=== PATIENT | male | born 1990 | race American Indian/Alaskan Native ===

== ENCOUNTER 2016-09-27 14:29 | Inpatient (IN) | payer OTHER ==
[2016-09-27] MEDS ORDERED: NARCAN 2 MG/2 ML ONE (14:37)
[2016-09-27] MEDS ORDERED: NARCAN 2 MG/2 ML IV ONE (14:37)
[2016-09-27] MEDS ORDERED: NACL 0.9% 1000 ML 1,000 ML IV ONE (15:15)
--- NOTE | 2016-09-27 15:18 | Cat Scan Report ---
FINAL REPORT EXAM: CT HEAD/BRAIN WO CON HISTORY: altered mental status TECHNIQUE: CT imaging acquired through the head without intravenous contrast. Transaxial reformations are provided. PRIORS: None. FINDINGS: The ventricles, cisterns and sulci are normal. No intraparenchymal or extra-axial mass, hemorrhage, or mass effect. [place] and white-matter differentiation is normal. Normal spherical shape of the globes. No significant abnormality within the paranasal sinuses or mastoid air cells. No skull or facial fracture visualized. IMPRESSION: No acute intracranial abnormality. Consider MRI follow-up as warranted.
--- NOTE | 2016-09-27 15:19 | Emergency Department Report ---
- General Chief complaint: Altered Mental Status Stated complaint: POSS DM Time Seen by Provider: 09/27/16 15:11 Source: EMS Mode of arrival: Stretcher Limitations: Altered Mental Status - History of Present Illness MD Complaint: generalized weakness, focal weakness, lack of energy -: Gradual Location: generalized Severity scale (0 -10): 2 Quality: tingling, numbness Consistency: constant Improves with: none Associated Symptoms: denies: chest pain, confusion, dark stools, diaphoresis, dysuria, easy bruising, fever/chills, headaches, loss of appetite, nausea/ vomiting, myalgias, rash, shortness of breath, syncope - Related Data Allergies Allergy/AdvReac Type Severity Reaction Status Date / Time No Known Allergies Allergy Unverified 05/21/14 22:55 ED Review of Systems ROS: Stated complaint: POSS DM Other details as noted in HPI Comment: Unobtainable due to pts medical conditions ED Past Medical Hx - Past Medical History Previous Medical History?: Yes Hx Diabetes: Yes (Type one insulin dependent/pump) Additional medical history: hypothyroid - Surgical History Past Surgical History?: Yes Additional Surgical History: L leg surgery - Social History Smoking Status: Unknown if ever smoked ED Physical Exam - General Limitations: Altered Mental Status General appearance: lethargic - Eye Eye exam: Present: normal appearance, PERRL - ENT ENT exam: Present: normal exam - Neck Neck exam: Present: normal inspection - Respiratory Respiratory exam: Present: normal lung sounds bilaterally. Absent: respiratory distress, wheezes, rales, rhonchi - Cardiovascular Cardiovascular Exam: Present: regular rate, normal rhythm - GI/Abdominal GI/Abdominal exam: Present: soft. Absent: distended, tenderness, guarding - Extremities Exam Extremities exam: Present: normal inspection - Back Exam Back exam: Present: normal inspection - Neurological Exam Neurological exam: Present: CN II-XII intact, reflexes normal - Skin Skin exam: Present: warm ED Course Vital Signs 09/27/16 14:40 Temperature 99.7 F H Pulse Rate 115 H Respiratory 12 Rate Blood Pressure 111/64 O2 Sat by Pulse 98 Oximetry Critical care attestation.: If time is entered above; I have spent that time in minutes in the direct care of this critically ill patient, excluding procedure time. ED Disposition Condition: Stable
[2016-09-27] MEDS ORDERED: ATIVAN ONE (15:57)
[2016-09-27] MEDS ORDERED: ATIVAN IV ONE (15:59)
[2016-09-27 16:00] LABS: Urine Drugs of Abuse Note Disclamer
[2016-09-27 16:06] LABS: Bilirubin,Urine NEG (Negative); Blood,Urine NEG (Negative); Ketones,Urine NEG (Negative); Leukocyte Esterase,Urine NEG (Negative); Mucus,Urine FEW /HPF; Nitrite,Urine NEG (Negative); Protein,Urine <15 mg/dL mg/dL (Negative)
[2016-09-27 16:35] LABS: Hematocrit 44.9 % (35.5-45.6); Hemoglobin 14.9 gm/dl (11.8-15.2); Mean Corpuscular HGB Conc 33 % (32-34); Mean Corpuscular Hemoglobin 29 pg (28-32); Mean Corpuscular Volume 87 fl (84-94); Platelet Count 144 K/mm3 (140-440); Red Blood Count 5.15 M/mm3 (3.65-5.03); Red Cell Distribution Width 12.3 % (13.2-15.2); White Blood Count 2.6 K/mm3 (4.5-11.0)
[2016-09-27 17:28] LABS: Basophils % (Manual) 0 % (0.0-1.8); Blastocytes % (Manual) 0 %
[2016-09-27 17:29] LABS: Anisocytosis 1+; Diff Status Complete; Platelet Estimate Consistent w Auto
[2016-09-27 17:49] LABS: Alanine Aminotransferase 17 units/L (7-56); Albumin 3.9 g/dL (3.9-5); Albumin/Globulin Ratio 1.8 %; Alkaline Phosphatase 60 units/L (35-129); Anion Gap 17 mmol/L; Blood Urea Nitrogen 8 mg/dL (9-20); Calcium 8.3 mg/dL (8.4-10.2); Carbon Dioxide 23 mmol/L (22-30); Chloride 100.9 mmol/L (98-107); Glucose 226 mg/dL (75-100); Potassium 4.1 mmol/L (3.6-5.0); Sodium 137 mmol/L (137-145); Total Protein 6.1 g/dL (6.3-8.2)
--- NOTE | 2016-09-27 21:01 | History and Physical Report ---
History of Present Illness Date of examination: 09/27/16 Date of admission: 09/27/16 Chief complaint: Seizurex1 and AMS 3 to 4 hours History of present illness: [place]: Seizures for 1 minute followed by altered sensorium and decreased responsiveness.Mother unsure whether Hypoglycemia happened.Patient is a Juvenile Diabetic with Insulin pump.For EMS BG was 144.D50w one amp given on field.One episide of generalized seizure happened 3 years ago around 2013.Was responsive for a minute during my exam.Followed by not answering any questions.No fever /Chills - Past Medical History Previous Medical History?: Yes Hx Diabetes: Yes (Type one insulin dependent/pump) Additional medical history: hypothyroid,L foot drop sec to compartment syndrome causing Nerve injury. - Surgical History Past Surgical History?: Yes Additional Surgical History: L leg surgery-Fasciotomy for compartment syndrome - Social History Smoking Status: No smoking/drugs/alcohol Fam hx Htn Medications and Allergies Allergies Allergy/AdvReac Type Severity Reaction Status Date / Time No Known Allergies Allergy Unverified 05/21/14 22:55 Home Medications Medication Instructions Recorded Confirmed Last Taken Type Insulin Pump Cartridge 09/27/16 Unknown History Levothyroxine [Synthroid] 100 mcg PO QAM 09/27/16 09/27/16 Unknown History Review of Systems All systems: negative Constitutional: no weight loss, no weight gain, no fever, no chills Ears, nose, mouth and throat: no nasal congestion, no nasal discharge, no sinus pain, no sore throat Cardiovascular: no chest pain, no orthopnea, no palpitations, no rapid/ irregular heart beat, no edema, no syncope, no lightheadedness, no shortness of breath Respiratory: no cough, no cough with sputum, no excessive sputum, no hemoptysis , no shortness of breath, no dyspnea on exertion Gastrointestinal: no abdominal pain, no nausea, no vomiting, no diarrhea, no constipation, no change in bowel habits Genitourinary Male: no dysuria, no hematuria, no flank pain, no discharge, no urinary frequency, no urinary hesitancy Musculoskeletal: no neck stiffness, no neck pain, no shooting arm pain, no arm numbness/tingling, no low back pain, no shooting leg pain, no leg numbness/ tingling, no redness of joints Integumentary: no rash, no pruritis, no redness, no sores, no wounds, no jaundice, no boils, no blisters Neurological: seizures, confusion, no syncope, no tremors, no lack of coordination, no vertigo, no headaches, no migraines, no tic Psychiatric: no anxiety, no memory loss, no change in sleep habits, no sleep disturbances Endocrine: no cold intolerance, no heat intolerance, no polyphagia, no excessive thirst, no polydipsia, no polyuria, no nocturia, no excessive sweating , no flushing, no weight change Hematologic/Lymphatic: no easy bruising, no easy bleeding Allergic/Immunologic: no urticaria, no allergic rhinitis, no wheezing Exam - Physical Exam Narrative exam: Closes his eyes and does not answer questions - Constitutional Vitals: Temp Pulse Resp BP Pulse Ox 99.7 F H 73 32 H 127/74 95 09/27/16 15:30 09/27/16 20:45 09/27/16 20:45 09/27/16 20:45 09/27/16 20:45 General appearance: Present: no acute distress, well-nourished - EENT Eyes: Present: PERRL ENT: hearing intact, clear oral mucosa - Neck Neck: Present: supple, normal ROM - Respiratory Respiratory effort: normal Respiratory: bilateral: CTA - Cardiovascular Heart rate: 78 Rhythm: regular Heart Sounds: Present: S1 & S2. Absent: rub, click - Extremities Extremities: no ischemia, pulses intact, pulses symmetrical, No edema, abnormal (L leg extensive scar on lateral aspect of calf) Peripheral Pulses: within normal limits - Abdominal General gastrointestinal: Present: soft, non-tender, non-distended, normal bowel sounds Male genitourinary: Present: normal - Integumentary Integumentary: Present: clear, warm, dry - Musculoskeletal Musculoskeletal: gait normal, strength equal bilaterally - Psychiatric Psychiatric: appropriate mood/affect, intact judgment & insight - Neurologic Neurologic: CNII-XII intact, moves all extremities Results - Labs CBC & Chem 7: 09/27/16 16:18 09/27/16 16:18 Labs: Laboratory Last Values WBC 2.6 K/mm3 (4.5-11.0) L 09/27/16 16:18 RBC 5.15 M/mm3 (3.65-5.03) H 09/27/16 16:18 Hgb 14.9 gm/dl (11.8-15.2) 09/27/16 16:18 Hct 44.9 % (35.5-45.6) 09/27/16 16:18 MCV 87 fl (84-94) 09/27/16 16:18 MCH 29 pg (28-32) 09/27/16 16:18 MCHC 33 % (32-34) 09/27/16 16:18 RDW 12.3 % (13.2-15.2) L 09/27/16 16:18 Plt Count 144 K/mm3 (140-440) 09/27/16 16:18 [place] % (Auto) Adjunct Psychology Faculty Member 09/27/16 16:18 Add Manual Diff Complete 09/27/16 16:18 Total Counted 100 09/27/16 16:18 Seg Neuts % (Manual) 60.0 % (40.0-70.0) 09/27/16 16:18 Band Neutrophils % 1.0 % 09/27/16 16:18 Lymphocytes % (Manual) 22.0 % (13.4-35.0) 09/27/16 16:18 Reactive Lymphs % (Man) 0 % 09/27/16 16:18 Monocytes % (Manual) 16.0 % (0.0-7.3) H 09/27/16 16:18 Eosinophils % (Manual) 1.0 % (0.0-4.3) 09/27/16 16:18 Basophils % (Manual) 0 % (0.0-1.8) 09/27/16 16:18 Metamyelocytes % 0 % 09/27/16 16:18 Myelocytes % 0 % 09/27/16 16:18 Promyelocytes % 0 % 09/27/16 16:18 Blast Cells % 0 % 09/27/16 16:18 Nucleated RBC % Not Reportable 09/27/16 16:18 Seg Neutrophils # Man 1.6 K/mm3 (1.8-7.7) L 09/27/16 16:18 Band Neutrophils # 0.0 K/mm3 09/27/16 16:18 Lymphocytes # (Manual) 0.6 K/mm3 (1.2-5.4) L 09/27/16 16:18 Abs React Lymphs (Man) 0.0 K/mm3 09/27/16 16:18 Monocytes # (Manual) 0.4 K/mm3 (0.0-0.8) 09/27/16 16:18 Eosinophils # (Manual) 0.0 K/mm3 (0.0-0.4) 09/27/16 16:18 Basophils # (Manual) 0.0 K/mm3 (0.0-0.1) 09/27/16 16:18 Metamyelocytes # 0.0 K/mm3 09/27/16 16:18 Myelocytes # 0.0 K/mm3 09/27/16 16:18 Promyelocytes # 0.0 K/mm3 09/27/16 16:18 Blast Cells # 0.0 K/mm3 09/27/16 16:18 WBC Morphology Not Reportable 09/27/16 16:18 Hypersegmented Neuts Not Reportable 09/27/16 16:18 Hyposegmented Neuts Not Reportable 09/27/16 16:18 Hypogranular Neuts Not Reportable 09/27/16 16:18 Smudge Cells Not Reportable 09/27/16 16:18 Toxic Granulation Not Reportable 09/27/16 16:18 Toxic Vacuolation Not Reportable 09/27/16 16:18 Dohle Bodies Not Reportable 09/27/16 16:18 Pelger-Huet Anomaly Not Reportable 09/27/16 16:18 Liat Rods Not Reportable 09/27/16 16:18 Platelet Estimate Consistent w auto 09/27/16 16:18 Clumped Platelets Not Reportable 09/27/16 16:18 Plt Clumps, EDTA Not Reportable 09/27/16 16:18 Large Platelets Not Reportable 09/27/16 16:18 Giant Platelets Not Reportable 09/27/16 16:18 Platelet Satelliting Not Reportable 09/27/16 16:18 Plt Morphology Comment Not Reportable 09/27/16 16:18 RBC Morphology Not Reportable 09/27/16 16:18 Dimorphic RBCs Not Reportable 09/27/16 16:18 Polychromasia Not Reportable 09/27/16 16:18 Hypochromasia Not Reportable 09/27/16 16:18 Poikilocytosis Not Reportable 09/27/16 16:18 Anisocytosis 1+ 09/27/16 16:18 Microcytosis Not Reportable 09/27/16 16:18 Macrocytosis Not Reportable 09/27/16 16:18 Spherocytes Not Reportable 09/27/16 16:18 Pappenheimer Bodies Not Reportable 09/27/16 16:18 Sickle Cells Not Reportable 09/27/16 16:18 Target Cells Not Reportable 09/27/16 16:18 Tear Drop Cells Not Reportable 09/27/16 16:18 Ovalocytes Not Reportable 09/27/16 16:18 Helmet Cells Not Reportable 09/27/16 16:18 [place] Bodies Not Reportable 09/27/16 16:18 [place] Rings Not Reportable 09/27/16 16:18 [place] Cells Not Reportable 09/27/16 16:18 Bite Cells Not Reportable 09/27/16 16:18 Crenated Cell Not Reportable 09/27/16 16:18 Elliptocytes Not Reportable 09/27/16 16:18 Acanthocytes (Spur) Not Reportable 09/27/16 16:18 Rouleaux Not Reportable 09/27/16 16:18 Hemoglobin C Crystals Not Reportable 09/27/16 16:18 Schistocytes Not Reportable 09/27/16 16:18 Malaria parasites Not Reportable 09/27/16 16:18 Xavier Bodies Not Reportable 09/27/16 16:18 Hem Pathologist Commnt No 09/27/16 16:18 Sodium 137 mmol/L (137-145) 09/27/16 16:18 Potassium 4.1 mmol/L (3.6-5.0) 09/27/16 16:18 Chloride 100.9 mmol/L (98-107) 09/27/16 16:18 Carbon Dioxide 23 mmol/L (22-30) 09/27/16 16:18 Anion Gap 17 mmol/L 09/27/16 16:18 BUN 8 mg/dL (9-20) L 09/27/16 16:18 Creatinine 1.0 mg/dL (0.8-1.5) 09/27/16 16:18 Estimated GFR > 60 ml/min 09/27/16 16:18 BUN/Creatinine Ratio 8.00 % 09/27/16 16:18 Glucose 226 mg/dL (75-100) H 09/27/16 16:18 POC Glucose 347 (70-105) H 09/27/16 20:19 Lactic Acid 1.30 mmol/L (0.7-2.0) 09/27/16 17:35 Calcium 8.3 mg/dL (8.4-10.2) L 09/27/16 16:18 Magnesium 1.50 mg/dL (1.7-2.3) L 09/27/16 16:18 Total Bilirubin 1.60 mg/dL (0.1-1.2) H 09/27/16 16:18 AST 19 units/L (5-40) 09/27/16 16:18 ALT 17 units/L (7-56) 09/27/16 16:18 Alkaline Phosphatase 60 units/L (35-129) 09/27/16 16:18 Total Creatine Kinase 363 units/L (55-170) H 09/27/16 17:35 Total Protein 6.1 g/dL (6.3-8.2) L 09/27/16 16:18 Albumin 3.9 g/dL (3.9-5) 09/27/16 16:18 Albumin/Globulin Ratio 1.8 % 09/27/16 16:18 TSH 0.105 mlU/mL (0.270-4.200) L 09/27/16 16:18 Urine Color Yellow (Yellow) 09/27/16 15:50 Urine Turbidity Clear (Clear) 09/27/16 15:50 Urine pH 6.0 (5.0-7.0) 09/27/16 15:50 Ur Specific [place] 1.018 (1.003-1.030) 09/27/16 15:50 Urine Protein <15 mg/dl mg/dL (Negative) 09/27/16 15:50 Urine Glucose (UA) >=500 mg/dL (Negative) 09/27/16 15:50 Urine Ketones Neg mg/dL (Negative) 09/27/16 15:50 Urine Blood Neg (Negative) 09/27/16 15:50 Urine Nitrite Neg (Negative) 09/27/16 15:50 Urine Bilirubin Neg (Negative) 09/27/16 15:50 Urine Urobilinogen 2.0 mg/dL (<2.0) 09/27/16 15:50 Ur Leukocyte Esterase Neg (Negative) 09/27/16 15:50 Urine WBC (Auto) 1.0 /HPF (0.0-6.0) 09/27/16 15:50 Urine RBC (Auto) 3.0 /HPF (0.0-6.0) 09/27/16 15:50 Urine Mucus Few /HPF 09/27/16 15:50 Salicylates < 0.3 mg/dL (2.8-20.0) L 09/27/16 16:18 Urine Opiates Screen Presumptive negative 09/27/16 15:50 Urine Methadone Screen Presumptive negative 09/27/16 15:50 Acetaminophen < 15.0 ug/mL (10.0-30.0) 09/27/16 16:18 Ur Barbiturates Screen Presumptive negative 09/27/16 15:50 Ur Phencyclidine Scrn Presumptive negative 09/27/16 15:50 Ur Amphetamines Screen Presumptive negative 09/27/16 15:50 U Benzodiazepines Scrn Presumptive negative 09/27/16 15:50 Urine Cocaine Screen Presumptive negative 09/27/16 15:50 U Marijuana (THC) Screen Presumptive positive 09/27/16 15:50 Drugs of Abuse Note Disclamer 09/27/16 15:50 Plasma/Serum Alcohol < 0.01 gm% (0-0.07) 09/27/16 16:18 - Imaging and Cardiology CT Scan - head: report reviewed (NAF) Assessment and Plan Advance Directives: Yes (Full code) VTE prophylaxis?: Chemical Plan of care discussed with patient/family: Yes - Patient Problems (1) Seizure disorder Current Visit: Yes Status: Acute Plan to address problem: @nd episode of seizure after 3 years when first episode happened.Started on IV keppra.To transition to PO Keppra.Neuro consult by Dr Watson reqquested. (2) Altered mental status Current Visit: Yes Status: Acute Qualifiers: Altered mental status type: disorientation Coma depth: C Coma timing: C Qualified Code(s): R41.0 - Disorientation, unspecified Plan to address problem: Meningitis a low possibility b/c of sudden onset of AMS .No fever/Neck stiffness. Hypoglycemia at home?? (3) Diabetes mellitus, insulin dependent (IDDM), controlled Current Visit: Yes Status: Chronic Plan to address problem: On Insulin pump.To continue Insulin Pump and coverage.Check A1c (4) Hypothyroidism (acquired) Current Visit: Yes Status: Chronic Plan to address problem: Cont Synthyroid (5) DVT prophylaxis Current Visit: Yes Status: Acute Plan to address problem: on lovenox
[2016-09-27] MEDS ORDERED: TYLENOL PO PRN (21:02)
[2016-09-27] MEDS ORDERED: DULCOLAX PR PRN (21:02)
[2016-09-27] MEDS ORDERED: DILAUDID IV PRN (21:02)
[2016-09-27] MEDS ORDERED: PERCOCET 5/325 PO PRN (21:02)
[2016-09-27] MEDS ORDERED: MILK OF MAGNESIA PO PRN (21:02)
[2016-09-27] MEDS ORDERED: ZOFRAN IV PRN (21:02)
[2016-09-27] MEDS ORDERED: NOVOLOG SUB-Q ONE (21:07)
[2016-09-27] MEDS: KEPPRA 750 MG in D5W 100 ML IV SCH (21:58)
[2016-09-27] MEDS ORDERED: NACL 0.45% 1000 ML 1,000 ML IV SCH (22:00)
[2016-09-27] MEDS: PEPCID IV SCH (23:36)
[2016-09-28] MEDS: NOVOLOG SUB-Q SCH ×5 (01:40→18:37)
--- NOTE | 2016-09-28 01:45 | Admit Criteria Form ---
Admission Criteria Documentation: MENTAL STATUS CHANGE Clinical Indications for Inpatient Care (Place 'X' for any and all applicable criteria): Ongoing inpatient care may be needed for 1 or more of the following(1)(2)(3)(5)( 6): [X ]I. Suspected serious etiology (eg, medical disorder, TOOLROOM MACHINIST event) of altered mental status [ ]II. Danger to self or others not manageable at lower level of care [ ]III. Grave disability (eg, inability to perform self care necessary at lower level of care) [ ]IV. Agitation or inappropriate behavior interfering with care for primary condition (eg, attempting to discontinue lines or drains prematurely, unable to cooperate with respiratory care) [ ]V. Delirium [A] [D][E] as described by 1 or more of the following(26): [ ]a) Delirium due to alcohol or sedative [F] withdrawal [ ]b) Delirium of uncertain etiology that has not responded to appropriate empiric treatment [ ]c) Delirium that prevents performance of a life-sustaining function (eg, feeding or hydrating oneself) [ ]. General contraindications and/or Inappropriate clinical situations for Observational Care in patients with Mental Status Change, when ANY ONE of the following is required: [ ]a) Prediction of prolongation of LOS based on ANY ONE of the following may be considered as a contraindication for observational care 2, 3, 4, 5, 6, 7, 8, 9, 10, 11 [ ]i) Age > 65 yrs. [ ]ii) Patient arriving by ambulance [ ]iii) Patient with high acuity [ ]iv) Patient requiring vital sign monitoring [ ]v) Patient on IV medication [ ]b) Systolic blood pressures greater than or equal to 180mmHg 3, 12 [ ]c) Patient with altered mental status including delirium and other alteration of consciousness, (3) [ ]d) Patient whose discharge disposition will be to a residential home or rehabilitation home should not be managed in Emergency Department Observation Unit. CMS rule requires 3 days hospital stay before such placement.3,13 [ ]e) Patient with failure to thrive due to broad array of etiologies 3,16,17 [ ]f) Inability to ambulate 3,14 Extended stay beyond goal length of stay for the primary condition may be needed until ALL of the following are present(3)(5): [ ]a) Underlying medical etiology of mental status change is absent, or has been established and adequately treated [ ]b) Danger to self or others is absent or manageable at lower level of care. [ ]c) Behavior crisis management, including physical or chemical restraints, is not required or available at lower level of car [ ]d) Substance or alcohol withdrawal is absent or manageable at lower level of care. [ ]e) Behavioral symptoms (eg, agitation, somnolence, inappropriate behavior) are absent, or are manageable at lower level of care. The original [facility] [employer] content created by [facility] [employer] has been revised. The portions of the content which have been revised are identified through the use of italic text or in bold, and [facility] has neither reviewed nor approved the modified material. All other unmodified content is copyright [facility] [employer]. Please see references footnoted in the original [facility] edition 2016 Admission Criteria Met: Yes
[2016-09-28] MEDS: SYNTHROID PO SCH (07:23)
[2016-09-28 08:06] LABS: Basophils % (Auto) 0.6 % (0.0-1.8); Eosinophils % (Auto) 0.3 % (0.0-4.3); Hematocrit 40.8 % (35.5-45.6); Hemoglobin 13.7 gm/dl (11.8-15.2); Mean Corpuscular HGB Conc 34 % (32-34); Mean Corpuscular Hemoglobin 30 pg (28-32); Mean Corpuscular Volume 88 fl (84-94); Platelet Count 119 K/mm3 (140-440); Red Blood Count 4.64 M/mm3 (3.65-5.03); Red Cell Distribution Width 12.6 % (13.2-15.2); White Blood Count 3.8 K/mm3 (4.5-11.0)
[2016-09-28 08:19] LABS: Alanine Aminotransferase 16 units/L (7-56); Albumin 3.4 g/dL (3.9-5); Albumin/Globulin Ratio 1.6 %; Alkaline Phosphatase 50 units/L (35-129); Anion Gap 16 mmol/L; BUN/Creatinine Ratio 3.63; Blood Urea Nitrogen 4 mg/dL (9-20); Calcium 8.1 mg/dL (8.4-10.2); Carbon Dioxide 23 mmol/L (22-30); Chloride 100.9 mmol/L (98-107); Glucose 223 mg/dL (75-100); Potassium 3.8 mmol/L (3.6-5.0); Sodium 136 mmol/L (137-145); Total Protein 5.5 g/dL (6.3-8.2)
[2016-09-28] MEDS ORDERED: LOVENOX SUB-Q SCH (10:00)
[2016-09-28] MEDS: PEPCID IV SCH (10:36)
[2016-09-28] MEDS: ROCEPHIN/NS 2 GM/100 ML 2 GM/100 ML BAG IV SCH ×2 (10:37→12:44)
--- NOTE | 2016-09-28 11:52 | Consultation ---
History of Present Illness - Reason for Consult Consult date: 09/28/16 seizure - History of Present Illness 26 yo BM seen for evaluation of prolonged LOC and altered sensorium. Exam at this time shows he is arousable and will answer simple OK to continue anticonvulsants to have MRI of the barin today exam is non focal and I observed no seizures issue likely is hypoglycemia and severe dehydration he has been hypoglycemic in the past and is insulin dependent will check EEG and MRI of the brain Thanks Medications and Allergies Allergies Allergy/AdvReac Type Severity Reaction Status Date / Time No Known Allergies Allergy Unverified 05/21/14 22:55 Home Medications Medication Instructions Recorded Confirmed Last Taken Type Insulin Pump Cartridge 09/27/16 Unknown History Levothyroxine [Synthroid] 100 mcg PO QAM 09/27/16 09/27/16 Unknown History Active Meds: Active Medications Acetaminophen (Tylenol) 650 mg PO Q4H PRN PRN Reason: Pain MILD(1-3)/Fever >100.5/[place] Bisacodyl (Dulcolax) 10 mg [place] QDAY PRN PRN Reason: Constipation unrelieved by MOM Enoxaparin Sodium (Lovenox) 40 mg SUB-Q QDAY [facility] Last Admin: 09/28/16 10:37 Dose: 40 mg Famotidine (Pepcid) 20 mg IV BID [facility] Last Admin: 09/28/16 10:36 Dose: 20 mg Hydromorphone HCl (Dilaudid) 0.5 mg IV Q3H PRN PRN Reason: Pain , Severe (7-10) Sodium Chloride (Nacl 0.45% 1000 Ml) 1,000 mls @ 75 mls/hr IV DIRECT [facility] Last Admin: 09/27/16 23:36 Dose: 75 mls/hr Levetiracetam 750 mg/ Dextrose 107.5 mls @ 400 mls/hr IV Q12HR [facility] Last Admin: 09/27/16 21:58 Dose: 400 mls/hr Ceftriaxone Sodium (Rocephin/Ns 2 Gm/100 Ml) 2 gm in 100 mls @ 200 mls/hr IV Q24HR DONY PRN Reason: Protocol Last Admin: 09/28/16 10:37 Dose: 200 mls/hr Insulin Aspart (Novolog) 0 units SUB-Q Q4HR DONY PRN Reason: Protocol Last Admin: 09/28/16 06:55 Dose: Not Given Levothyroxine Sodium (Synthroid) 100 mcg PO QAM@0600 DONY Last Admin: 09/28/16 07:23 Dose: Not Given Magnesium Hydroxide (Milk Of Magnesia) 30 ml PO Q4H PRN PRN Reason: Constipation Ondansetron HCl (Zofran) 4 mg IV Q8H PRN PRN Reason: N/V unrelieved by Reglan Oxycodone/Acetaminophen (Percocet 5/325) 1 tab PO Q6H PRN PRN Reason: Pain, Moderate (4-6) Exam - Constitutional Vitals: Temp Pulse Resp BP Pulse Ox 100.4 F H 63 16 126/78 97 09/28/16 08:29 09/28/16 08:29 09/28/16 08:29 09/28/16 08:29 09/28/16 08:29 Results - Labs CBC & Chem 7: 09/28/16 06:57 09/28/16 06:57 Labs: Abnormal lab results 09/27/16 09/28/16 09/28/16 Range/Units 21:36 05:48 06:57 WBC 3.8 L (4.5-11.0) K/mm3 RDW 12.6 L (13.2-15.2) % Plt Count 119 L (140-440) K/mm3 [place] % (Auto) 15.0 H (0.0-7.3) % Sodium (137-145) mmol/L BUN (9-20) mg/dL Glucose (75-100) mg/dL POC Glucose 285 H 177 H (70-105) Calcium (8.4-10.2) mg/dL Total Bilirubin (0.1-1.2) mg/dL Total Protein (6.3-8.2) g/dL Albumin (3.9-5) g/dL 09/28/16 Range/Units 06:57 WBC (4.5-11.0) K/mm3 RDW (13.2-15.2) % Plt Count (140-440) K/mm3 [place] % (Auto) (0.0-7.3) % Sodium 136 L (137-145) mmol/L BUN 4 L (9-20) mg/dL Glucose 223 H (75-100) mg/dL POC Glucose (70-105) Calcium 8.1 L (8.4-10.2) mg/dL Total Bilirubin 1.50 H (0.1-1.2) mg/dL Total Protein 5.5 L (6.3-8.2) g/dL Albumin 3.4 L (3.9-5) g/dL
[2016-09-28] MEDS: KEPPRA 750 MG in D5W 100 ML IV SCH (13:07)
--- NOTE | 2016-09-28 13:38 | Progress Note ---
Assessment and Plan Assessment and plan: Assessment and Plan [address] of the head shows no acute intracranial abnormality Patient started on IV keppra and we will transition to PO Keppra. Ativan when necessary MRI of the head ordered Neuro consulted for further evaluation 2 Altered mental status Resolved, patient alert oriented to person, place, time and situation 3. Diabetes mellitus, insulin dependent (IDDM), controlled Continue on Insulin pump. Accu-Chek before meals and at bedtime 4 Hypothyroidism (acquired) Continue on Synthyroid (5) DVT prophylaxis Patient on lovenox Patient Full code History Interval history: Patient had uneventful overnight, no episode seizures. Hospitalist Physical - Constitutional Vitals: Temp Pulse Resp BP Pulse Ox 100.4 F H 63 16 126/78 97 09/28/16 08:29 09/28/16 08:29 09/28/16 08:29 09/28/16 08:29 09/28/16 08:29 General appearance: Present: no acute distress, well-nourished - EENT Eyes: Present: PERRL ENT: hearing intact - Neck Neck: Present: supple - Respiratory Respiratory effort: normal - Cardiovascular Heart rate: 63 Rhythm: regular - Extremities Extremities: no ischemia Peripheral Pulses: within normal limits - Abdominal General gastrointestinal: soft, non-tender - Integumentary Integumentary: Present: clear, warm, erythema - Psychiatric Psychiatric: appropriate mood/affect - Neurologic Neurologic: CNII-XII intact - Allied Health Allied health notes reviewed: nursing Results - Labs CBC & Chem 7: 09/28/16 06:57 09/28/16 06:57 Labs: Laboratory Last Values WBC 3.8 K/mm3 (4.5-11.0) L 09/28/16 06:57 RBC 4.64 M/mm3 (3.65-5.03) 09/28/16 06:57 Hgb 13.7 gm/dl (11.8-15.2) 09/28/16 06:57 Hct 40.8 % (35.5-45.6) 09/28/16 06:57 MCV 88 fl (84-94) 09/28/16 06:57 MCH 30 pg (28-32) 09/28/16 06:57 MCHC 34 % (32-34) 09/28/16 06:57 RDW 12.6 % (13.2-15.2) L 09/28/16 06:57 Plt Count 119 K/mm3 (140-440) L 09/28/16 06:57 Lymph % (Auto) 32.8 % (13.4-35.0) 09/28/16 06:57 [place] % (Auto) 15.0 % (0.0-7.3) H 09/28/16 06:57 Eos % (Auto) 0.3 % (0.0-4.3) 09/28/16 06:57 Baso % (Auto) 0.6 % (0.0-1.8) 09/28/16 06:57 Lymph # 1.3 K/mm3 (1.2-5.4) 09/28/16 06:57 [place] # 0.6 K/mm3 (0.0-0.8) 09/28/16 06:57 Eos # 0.0 K/mm3 (0.0-0.4) 09/28/16 06:57 Baso # 0.0 K/mm3 (0.0-0.1) 09/28/16 06:57 Add Manual Diff Complete 09/27/16 16:18 Total Counted 100 09/27/16 16:18 Seg Neutrophils % 51.3 % (40.0-70.0) 09/28/16 06:57 Seg Neuts % (Manual) 60.0 % (40.0-70.0) 09/27/16 16:18 Band Neutrophils % 1.0 % 09/27/16 16:18 Lymphocytes % (Manual) 22.0 % (13.4-35.0) 09/27/16 16:18 Reactive Lymphs % (Man) 0 % 09/27/16 16:18 Monocytes % (Manual) 16.0 % (0.0-7.3) H 09/27/16 16:18 Eosinophils % (Manual) 1.0 % (0.0-4.3) 09/27/16 16:18 Basophils % (Manual) 0 % (0.0-1.8) 09/27/16 16:18 Metamyelocytes % 0 % 09/27/16 16:18 Myelocytes % 0 % 09/27/16 16:18 Promyelocytes % 0 % 09/27/16 16:18 Blast Cells % 0 % 09/27/16 16:18 Nucleated RBC % Not Reportable 09/27/16 16:18 Seg Neutrophils # 2.0 K/mm3 (1.8-7.7) 09/28/16 06:57 Seg Neutrophils # Man 1.6 K/mm3 (1.8-7.7) L 09/27/16 16:18 Band Neutrophils # 0.0 K/mm3 09/27/16 16:18 Lymphocytes # (Manual) 0.6 K/mm3 (1.2-5.4) L 09/27/16 16:18 Abs React Lymphs (Man) 0.0 K/mm3 09/27/16 16:18 Monocytes # (Manual) 0.4 K/mm3 (0.0-0.8) 09/27/16 16:18 Eosinophils # (Manual) 0.0 K/mm3 (0.0-0.4) 09/27/16 16:18 Basophils # (Manual) 0.0 K/mm3 (0.0-0.1) 09/27/16 16:18 Metamyelocytes # 0.0 K/mm3 09/27/16 16:18 Myelocytes # 0.0 K/mm3 09/27/16 16:18 Promyelocytes # 0.0 K/mm3 09/27/16 16:18 Blast Cells # 0.0 K/mm3 09/27/16 16:18 WBC Morphology Not Reportable 09/27/16 16:18 Hypersegmented Neuts Not Reportable 09/27/16 16:18 Hyposegmented Neuts Not Reportable 09/27/16 16:18 Hypogranular Neuts Not Reportable 09/27/16 16:18 Smudge Cells Not Reportable 09/27/16 16:18 Toxic Granulation Not Reportable 09/27/16 16:18 Toxic Vacuolation Not Reportable 09/27/16 16:18 Dohle Bodies Not Reportable 09/27/16 16:18 Pelger-Huet Anomaly Not Reportable 09/27/16 16:18 Liat Rods Not Reportable 09/27/16 16:18 Platelet Estimate Consistent w auto 09/27/16 16:18 Clumped Platelets Not Reportable 09/27/16 16:18 Plt Clumps, EDTA Not Reportable 09/27/16 16:18 Large Platelets Not Reportable 09/27/16 16:18 Giant Platelets Not Reportable 09/27/16 16:18 Platelet Satelliting Not Reportable 09/27/16 16:18 Plt Morphology Comment Not Reportable 09/27/16 16:18 RBC Morphology Not Reportable 09/27/16 16:18 Dimorphic RBCs Not Reportable 09/27/16 16:18 Polychromasia Not Reportable 09/27/16 16:18 Hypochromasia Not Reportable 09/27/16 16:18 Poikilocytosis Not Reportable 09/27/16 16:18 Anisocytosis 1+ 09/27/16 16:18 Microcytosis Not Reportable 09/27/16 16:18 Macrocytosis Not Reportable 09/27/16 16:18 Spherocytes Not Reportable 09/27/16 16:18 Pappenheimer Bodies Not Reportable 09/27/16 16:18 Sickle Cells Not Reportable 09/27/16 16:18 Target Cells Not Reportable 09/27/16 16:18 Tear Drop Cells Not Reportable 09/27/16 16:18 Ovalocytes Not Reportable 09/27/16 16:18 Helmet Cells Not Reportable 09/27/16 16:18 Yancey-Angus Bodies Not Reportable 09/27/16 16:18 [employer] Rings Not Reportable 09/27/16 16:18 [place] Cells Not Reportable 09/27/16 16:18 Bite Cells Not Reportable 09/27/16 16:18 Crenated Cell Not Reportable 09/27/16 16:18 Elliptocytes Not Reportable 09/27/16 16:18 Acanthocytes (Spur) Not Reportable 09/27/16 16:18 Rouleaux Not Reportable 09/27/16 16:18 Hemoglobin C Crystals Not Reportable 09/27/16 16:18 Schistocytes Not Reportable 09/27/16 16:18 Malaria parasites Not Reportable 09/27/16 16:18 Xavier Bodies Not Reportable 09/27/16 16:18 Hem Pathologist Commnt No 09/27/16 16:18 Sodium 136 mmol/L (137-145) L 09/28/16 06:57 Potassium 3.8 mmol/L (3.6-5.0) 09/28/16 06:57 Chloride 100.9 mmol/L (98-107) 09/28/16 06:57 Carbon Dioxide 23 mmol/L (22-30) 09/28/16 06:57 Anion Gap 16 mmol/L 09/28/16 06:57 BUN 4 mg/dL (9-20) L 09/28/16 06:57 Creatinine 1.1 mg/dL (0.8-1.5) 09/28/16 06:57 Estimated GFR > 60 ml/min 09/28/16 06:57 BUN/Creatinine Ratio 3.63 % 09/28/16 06:57 Glucose 223 mg/dL (75-100) H 09/28/16 06:57 POC Glucose 118 (70-105) H 09/28/16 12:26 Hemoglobin A1c 8.2 % (4-6) H 09/27/16 16:18 Lactic Acid 1.30 mmol/L (0.7-2.0) 09/27/16 17:35 Calcium 8.1 mg/dL (8.4-10.2) L 09/28/16 06:57 Magnesium 1.50 mg/dL (1.7-2.3) L 09/27/16 16:18 Total Bilirubin 1.50 mg/dL (0.1-1.2) H 09/28/16 06:57 AST 15 units/L (5-40) 09/28/16 06:57 ALT 16 units/L (7-56) 09/28/16 06:57 Alkaline Phosphatase 50 units/L (35-129) 09/28/16 06:57 Total Creatine Kinase 363 units/L (55-170) H 09/27/16 17:35 Total Protein 5.5 g/dL (6.3-8.2) L 09/28/16 06:57 Albumin 3.4 g/dL (3.9-5) L 09/28/16 06:57 Albumin/Globulin Ratio 1.6 % 09/28/16 06:57 TSH 0.105 mlU/mL (0.270-4.200) L 09/27/16 16:18 Urine Color Yellow (Yellow) 09/27/16 15:50 Urine Turbidity Clear (Clear) 09/27/16 15:50 Urine pH 6.0 (5.0-7.0) 09/27/16 15:50 Ur Specific [place] 1.018 (1.003-1.030) 09/27/16 15:50 Urine Protein <15 mg/dl mg/dL (Negative) 09/27/16 15:50 Urine Glucose (UA) >=500 mg/dL (Negative) 09/27/16 15:50 Urine Ketones Neg mg/dL (Negative) 09/27/16 15:50 Urine Blood Neg (Negative) 09/27/16 15:50 Urine Nitrite Neg (Negative) 09/27/16 15:50 Urine Bilirubin Neg (Negative) 09/27/16 15:50 Urine Urobilinogen 2.0 mg/dL (<2.0) 09/27/16 15:50 Ur Leukocyte Esterase Neg (Negative) 09/27/16 15:50 Urine WBC (Auto) 1.0 /HPF (0.0-6.0) 09/27/16 15:50 Urine RBC (Auto) 3.0 /HPF (0.0-6.0) 09/27/16 15:50 Urine Mucus Few /HPF 09/27/16 15:50 Salicylates < 0.3 mg/dL (2.8-20.0) L 09/27/16 16:18 Urine Opiates Screen Presumptive negative 09/27/16 15:50 Urine Methadone Screen Presumptive negative 09/27/16 15:50 Acetaminophen < 15.0 ug/mL (10.0-30.0) 09/27/16 16:18 Ur Barbiturates Screen Presumptive negative 09/27/16 15:50 Ur Phencyclidine Scrn Presumptive negative 09/27/16 15:50 Ur Amphetamines Screen Presumptive negative 09/27/16 15:50 U Benzodiazepines Scrn Presumptive negative 09/27/16 15:50 Urine Cocaine Screen Presumptive negative 09/27/16 15:50 U Marijuana (THC) Screen Presumptive positive 09/27/16 15:50 Drugs of Abuse Note Disclamer 09/27/16 15:50 Plasma/Serum Alcohol < 0.01 gm% (0-0.07) 09/27/16 16:18 - Imaging and Cardiology CT Scan - head: image reviewed (no acute intracranial abnormality)
--- NOTE | 2016-09-28 16:17 | Discharge Summary ---
Providers - Providers Date of Admission: 09/27/16 21:02 Date of discharge: 09/28/16 Attending physician: ANGELIQUE SHEFFIELD MD 09/27/16 21:08 Consult to Physician [CONS] Routine Consulting Provider: SPARKLE HENRY Reason For Exam: [id number] ONSET Place consult to:: dr. henry Notified:: answering machine Phone number called:: [phone] Was contact made?: Yes Time called:: 07:39 Primary care physician: MACHINE STUFFER Hospitalization Condition: Stable Hospital course: Patient was admitted for altered mental status and seizures. Patient was altered mental status upon arrival but today is much improved and currently alert and oriented to place, person, time, and situation. He has been started on Keppra IV. No episode of seizures since admission. CT of the head shows no acute intracranial abnormality.He is stable for discharge if MRI of the head become normal. Disposition: DC-30 STILL A PATIENT Core Measure Documentation - Palliative Care Palliative Care/ Comfort Measures: Not Applicable - Core Measures Any of the following diagnoses?: none Exam - Constitutional Vitals: Temp Pulse Resp BP Pulse Ox 99.3 F 50 L 16 120/73 100 09/28/16 12:22 09/28/16 12:22 09/28/16 12:22 09/28/16 12:22 09/28/16 12:22 General appearance: Present: no acute distress - EENT Eyes: Present: PERRL ENT: hearing intact - Neck Neck: Present: supple - Respiratory Respiratory effort: normal Respiratory: bilateral: CTA - Cardiovascular Heart rate: 63 Rhythm: regular Heart Sounds: Present: S1 & S2 - Extremities Extremities: no ischemia Peripheral Pulses: within normal limits - Abdominal General gastrointestinal: Present: soft, non-tender Male genitourinary: Present: deferred - Rectal Rectal Exam: deferred - Integumentary Integumentary: Present: clear, warm - Musculoskeletal Musculoskeletal: strength equal bilaterally - Psychiatric Psychiatric: appropriate mood/affect - Allied Health Allied health notes reviewed: nursing Plan Activity: other (no motor vehicles driving unless medically clear) Diet: low fat, diabetic Follow up with: PRIMARY MD MARQUITA [Primary Care Provider] - 7 Days
[2016-09-29] MEDS: KEPPRA 750 MG in D5W 100 ML IV SCH ×3 (00:05→21:32)
[2016-09-29] MEDS: PEPCID IV SCH ×2 (00:06→10:56)
[2016-09-29] MEDS: NOVOLOG SUB-Q SCH ×5 (00:08→17:17)
[2016-09-29] MEDS: SYNTHROID PO SCH (05:36)
--- NOTE | 2016-09-29 08:33 | XRay Report ---
AP CHEST: HISTORY: Fever AP view of the chest demonstrates a normal mediastinal and cardiac contour with clear lungs and normal bony and soft tissue structures. IMPRESSION: Unremarkable AP chest.
[2016-09-29] MEDS: ROCEPHIN/NS 2 GM/100 ML 2 GM/100 ML BAG IV SCH (10:55)
--- NOTE | 2016-09-29 11:29 | Consultation ---
History of Present Illness - Reason for Consult Consult date: 09/29/16 EEG Report - History of Present Illness I reviewed the EEG and it is normal no active seizure activity left message on hospitalist cell phone and/c the nursing staff will f/u in the office Medications and Allergies Allergies Allergy/AdvReac Type Severity Reaction Status Date / Time No Known Allergies Allergy Unverified 05/21/14 22:55 Home Medications Medication Instructions Recorded Confirmed Last Taken Type Insulin Pump Cartridge 09/27/16 Unknown History Levothyroxine [Synthroid] 100 mcg PO QAM 09/27/16 09/27/16 Unknown History Active Meds: Active Medications Acetaminophen (Tylenol) 650 mg PO Q4H PRN PRN Reason: Pain MILD(1-3)/Fever >100.5/[place] Bisacodyl (Dulcolax) 10 mg ME QDAY PRN PRN Reason: Constipation unrelieved by MOM Famotidine (Pepcid) 20 mg IV BID [facility] Last Admin: 09/29/16 10:56 Dose: 20 mg Hydromorphone HCl (Dilaudid) 0.5 mg IV Q3H PRN PRN Reason: Pain , Severe (7-10) Levetiracetam 750 mg/ Dextrose 107.5 mls @ 400 mls/hr IV Q12HR [facility] Last Admin: 09/29/16 00:05 Dose: 400 mls/hr Ceftriaxone Sodium (Rocephin/Ns 2 Gm/100 Ml) 2 gm in 100 mls @ 200 mls/hr IV Q24HR [facility] PRN Reason: Protocol Last Admin: 09/29/16 10:55 Dose: 200 mls/hr Insulin Aspart (Novolog) 0 units SUB-Q Q4HR DONY PRN Reason: Protocol Last Admin: 09/29/16 05:40 Dose: Not Given Levothyroxine Sodium (Synthroid) 100 mcg PO QAM@0600 [facility] Last Admin: 09/29/16 05:36 Dose: 100 mcg Magnesium Hydroxide (Milk Of Magnesia) 30 ml PO Q4H PRN PRN Reason: Constipation Ondansetron HCl (Zofran) 4 mg IV Q8H PRN PRN Reason: N/V unrelieved by Reglan Oxycodone/Acetaminophen (Percocet 5/325) 1 tab PO Q6H PRN PRN Reason: Pain, Moderate (4-6) Exam - Constitutional Vitals: Temp Pulse Resp BP Pulse Ox 100.1 F H 64 16 128/72 97 09/29/16 08:20 09/29/16 08:20 09/29/16 08:20 09/29/16 08:20 09/29/16 08:20 Results - Labs CBC & Chem 7: 09/28/16 06:57 09/28/16 06:57 Labs: Abnormal lab results 09/28/16 09/28/16 09/28/16 Range/Units 12:26 16:30 17:30 POC Glucose 118 H 41 L 175 H (70-105) 09/29/16 Range/Units 11:22 POC Glucose 42 L (70-105)
--- NOTE | 2016-09-29 12:18 | Progress Note ---
<MARIN IRENE - Last Filed: 09/29/16 12:40> Assessment and Plan Assessment and plan: [address] of the head Normal Patient had EEG and it is normal, no active seizure activity Continue on IV keppra and we will transition to PO Keppra. Ativan when necessary MRI of the head ordered Followed by Neurology 2. Fever Patient had fever 100.1 Chest x-ray normal UA urinalysis ordered Oral fluid hydration Tylenol when necessary 3. Diabetes mellitus, insulin dependent (IDDM), controlled Continue on Insulin pump. Accu-Chek before meals and at bedtime 4 Hypothyroidism (acquired) Continue on Synthyroid (5) DVT prophylaxis Patient on lovenox Patient Full code History Interval history: No over night changes, no episode of seizures. Hospitalist Physical - Constitutional Vitals: Temp Pulse Resp BP Pulse Ox 100.1 F H 64 16 128/72 97 09/29/16 08:20 09/29/16 08:20 09/29/16 08:20 09/29/16 08:20 09/29/16 08:20 General appearance: Present: no acute distress - EENT Eyes: Present: PERRL ENT: hearing intact - Neck Neck: Present: supple - Respiratory Respiratory effort: normal - Cardiovascular Heart rate: 64 Rhythm: regular - Extremities Extremities: No edema Peripheral Pulses: within normal limits - Abdominal General gastrointestinal: soft, non-tender - Integumentary Integumentary: Present: clear, warm - Psychiatric Psychiatric: appropriate mood/affect - Neurologic Neurologic: CNII-XII intact - Allied Health Allied health notes reviewed: nursing Results - Labs CBC & Chem 7: 09/28/16 06:57 09/28/16 06:57 Labs: Laboratory Last Values WBC 3.8 K/mm3 (4.5-11.0) L 09/28/16 06:57 RBC 4.64 M/mm3 (3.65-5.03) 09/28/16 06:57 Hgb 13.7 gm/dl (11.8-15.2) 09/28/16 06:57 Hct 40.8 % (35.5-45.6) 09/28/16 06:57 MCV 88 fl (84-94) 09/28/16 06:57 MCH 30 pg (28-32) 09/28/16 06:57 MCHC 34 % (32-34) 09/28/16 06:57 RDW 12.6 % (13.2-15.2) L 09/28/16 06:57 Plt Count 119 K/mm3 (140-440) L 09/28/16 06:57 Lymph % (Auto) 32.8 % (13.4-35.0) 09/28/16 06:57 [place] % (Auto) 15.0 % (0.0-7.3) H 09/28/16 06:57 Eos % (Auto) 0.3 % (0.0-4.3) 09/28/16 06:57 Baso % (Auto) 0.6 % (0.0-1.8) 09/28/16 06:57 Lymph # 1.3 K/mm3 (1.2-5.4) 09/28/16 06:57 [place] # 0.6 K/mm3 (0.0-0.8) 09/28/16 06:57 Eos # 0.0 K/mm3 (0.0-0.4) 09/28/16 06:57 Baso # 0.0 K/mm3 (0.0-0.1) 09/28/16 06:57 Add Manual Diff Complete 09/27/16 16:18 Total Counted 100 09/27/16 16:18 Seg Neutrophils % 51.3 % (40.0-70.0) 09/28/16 06:57 Seg Neuts % (Manual) 60.0 % (40.0-70.0) 09/27/16 16:18 Band Neutrophils % 1.0 % 09/27/16 16:18 Lymphocytes % (Manual) 22.0 % (13.4-35.0) 09/27/16 16:18 Reactive Lymphs % (Man) 0 % 09/27/16 16:18 Monocytes % (Manual) 16.0 % (0.0-7.3) H 09/27/16 16:18 Eosinophils % (Manual) 1.0 % (0.0-4.3) 09/27/16 16:18 Basophils % (Manual) 0 % (0.0-1.8) 09/27/16 16:18 Metamyelocytes % 0 % 09/27/16 16:18 Myelocytes % 0 % 09/27/16 16:18 Promyelocytes % 0 % 09/27/16 16:18 Blast Cells % 0 % 09/27/16 16:18 Nucleated RBC % Not Reportable 09/27/16 16:18 Seg Neutrophils # 2.0 K/mm3 (1.8-7.7) 09/28/16 06:57 Seg Neutrophils # Man 1.6 K/mm3 (1.8-7.7) L 09/27/16 16:18 Band Neutrophils # 0.0 K/mm3 09/27/16 16:18 Lymphocytes # (Manual) 0.6 K/mm3 (1.2-5.4) L 09/27/16 16:18 Abs React Lymphs (Man) 0.0 K/mm3 09/27/16 16:18 Monocytes # (Manual) 0.4 K/mm3 (0.0-0.8) 09/27/16 16:18 Eosinophils # (Manual) 0.0 K/mm3 (0.0-0.4) 09/27/16 16:18 Basophils # (Manual) 0.0 K/mm3 (0.0-0.1) 09/27/16 16:18 Metamyelocytes # 0.0 K/mm3 09/27/16 16:18 Myelocytes # 0.0 K/mm3 09/27/16 16:18 Promyelocytes # 0.0 K/mm3 09/27/16 16:18 Blast Cells # 0.0 K/mm3 09/27/16 16:18 WBC Morphology Not Reportable 09/27/16 16:18 Hypersegmented Neuts Not Reportable 09/27/16 16:18 Hyposegmented Neuts Not Reportable 09/27/16 16:18 Hypogranular Neuts Not Reportable 09/27/16 16:18 Smudge Cells Not Reportable 09/27/16 16:18 Toxic Granulation Not Reportable 09/27/16 16:18 Toxic Vacuolation Not Reportable 09/27/16 16:18 Dohle Bodies Not Reportable 09/27/16 16:18 Pelger-Huet Anomaly Not Reportable 09/27/16 16:18 Liat Rods Not Reportable 09/27/16 16:18 Platelet Estimate Consistent w auto 09/27/16 16:18 Clumped Platelets Not Reportable 09/27/16 16:18 Plt Clumps, EDTA Not Reportable 09/27/16 16:18 Large Platelets Not Reportable 09/27/16 16:18 Giant Platelets Not Reportable 09/27/16 16:18 Platelet Satelliting Not Reportable 09/27/16 16:18 Plt Morphology Comment Not Reportable 09/27/16 16:18 RBC Morphology Not Reportable 09/27/16 16:18 Dimorphic RBCs Not Reportable 09/27/16 16:18 Polychromasia Not Reportable 09/27/16 16:18 Hypochromasia Not Reportable 09/27/16 16:18 Poikilocytosis Not Reportable 09/27/16 16:18 Anisocytosis 1+ 09/27/16 16:18 Microcytosis Not Reportable 09/27/16 16:18 Macrocytosis Not Reportable 09/27/16 16:18 Spherocytes Not Reportable 09/27/16 16:18 Pappenheimer Bodies Not Reportable 09/27/16 16:18 Sickle Cells Not Reportable 09/27/16 16:18 Target Cells Not Reportable 09/27/16 16:18 Tear Drop Cells Not Reportable 09/27/16 16:18 Ovalocytes Not Reportable 09/27/16 16:18 Helmet Cells Not Reportable 09/27/16 16:18 Yancey-Elco Bodies Not Reportable 09/27/16 16:18 [place] Rings Not Reportable 09/27/16 16:18 [place] Cells Not Reportable 09/27/16 16:18 Bite Cells Not Reportable 09/27/16 16:18 Crenated Cell Not Reportable 09/27/16 16:18 Elliptocytes Not Reportable 09/27/16 16:18 Acanthocytes (Spur) Not Reportable 09/27/16 16:18 Rouleaux Not Reportable 09/27/16 16:18 Hemoglobin C Crystals Not Reportable 09/27/16 16:18 Schistocytes Not Reportable 09/27/16 16:18 Malaria parasites Not Reportable 09/27/16 16:18 Xavier Bodies Not Reportable 09/27/16 16:18 Hem Pathologist Commnt No 09/27/16 16:18 Sodium 136 mmol/L (137-145) L 09/28/16 06:57 Potassium 3.8 mmol/L (3.6-5.0) 09/28/16 06:57 Chloride 100.9 mmol/L (98-107) 09/28/16 06:57 Carbon Dioxide 23 mmol/L (22-30) 09/28/16 06:57 Anion Gap 16 mmol/L 09/28/16 06:57 BUN 4 mg/dL (9-20) L 09/28/16 06:57 Creatinine 1.1 mg/dL (0.8-1.5) 09/28/16 06:57 Estimated GFR > 60 ml/min 09/28/16 06:57 BUN/Creatinine Ratio 3.63 % 09/28/16 06:57 Glucose 223 mg/dL (75-100) H 09/28/16 06:57 POC Glucose 96 (70-105) 09/29/16 12:03 Hemoglobin A1c 8.2 % (4-6) H 09/27/16 16:18 Lactic Acid 1.30 mmol/L (0.7-2.0) 09/27/16 17:35 Calcium 8.1 mg/dL (8.4-10.2) L 09/28/16 06:57 Magnesium 1.50 mg/dL (1.7-2.3) L 09/27/16 16:18 Total Bilirubin 1.50 mg/dL (0.1-1.2) H 09/28/16 06:57 AST 15 units/L (5-40) 09/28/16 06:57 ALT 16 units/L (7-56) 09/28/16 06:57 Alkaline Phosphatase 50 units/L (35-129) 09/28/16 06:57 Total Creatine Kinase 363 units/L (55-170) H 09/27/16 17:35 Total Protein 5.5 g/dL (6.3-8.2) L 09/28/16 06:57 Albumin 3.4 g/dL (3.9-5) L 09/28/16 06:57 Albumin/Globulin Ratio 1.6 % 09/28/16 06:57 TSH 0.105 mlU/mL (0.270-4.200) L 09/27/16 16:18 Urine Color Yellow (Yellow) 09/27/16 15:50 Urine Turbidity Clear (Clear) 09/27/16 15:50 Urine pH 6.0 (5.0-7.0) 09/27/16 15:50 Ur Specific [place] 1.018 (1.003-1.030) 09/27/16 15:50 Urine Protein <15 mg/dl mg/dL (Negative) 09/27/16 15:50 Urine Glucose (UA) >=500 mg/dL (Negative) 09/27/16 15:50 Urine Ketones Neg mg/dL (Negative) 09/27/16 15:50 Urine Blood Neg (Negative) 09/27/16 15:50 Urine Nitrite Neg (Negative) 09/27/16 15:50 Urine Bilirubin Neg (Negative) 09/27/16 15:50 Urine Urobilinogen 2.0 mg/dL (<2.0) 09/27/16 15:50 Ur Leukocyte Esterase Neg (Negative) 09/27/16 15:50 Urine WBC (Auto) 1.0 /HPF (0.0-6.0) 09/27/16 15:50 Urine RBC (Auto) 3.0 /HPF (0.0-6.0) 09/27/16 15:50 Urine Mucus Few /HPF 09/27/16 15:50 Salicylates < 0.3 mg/dL (2.8-20.0) L 09/27/16 16:18 Urine Opiates Screen Presumptive negative 09/27/16 15:50 Urine Methadone Screen Presumptive negative 09/27/16 15:50 Acetaminophen < 15.0 ug/mL (10.0-30.0) 09/27/16 16:18 Ur Barbiturates Screen Presumptive negative 09/27/16 15:50 Ur Phencyclidine Scrn Presumptive negative 09/27/16 15:50 Ur Amphetamines Screen Presumptive negative 09/27/16 15:50 U Benzodiazepines Scrn Presumptive negative 09/27/16 15:50 Urine Cocaine Screen Presumptive negative 09/27/16 15:50 U Marijuana (THC) Screen Presumptive positive 09/27/16 15:50 Drugs of Abuse Note Disclamer 09/27/16 15:50 Plasma/Serum Alcohol < 0.01 gm% (0-0.07) 09/27/16 16:18 - Imaging and Cardiology Chest x-ray: image reviewed (Unremarkable, AP chest) <ROCKY VILLAFUERTE R - Last Filed: 09/29/16 15:40> Assessment and Plan Assessment and plan: Patient is a 26-year-old man with history of type 1 diabetes mellitus on insulin pump, rhabdomyolysis with left foot drop and hypothyroidism who presents with new onset seizure and altered mental status. CT of the head read as negative, EEG negative per Dr. Rosas the neurologist; however, on Keppra. -Acute encephalopathy, POA -New Onset seizures: Continue Keppra, MRI machine is not working. -Hypothyroidism with low TSH: Needs adjustment dose of Synthroid -SIRS, as evident by 100.4 Fahrenheit temperature and white blood cell count 3.8 : Patient given IV Rocephin since admission per Dr. Coleman, I ordered CXR, UA and blood cultures, spoke with Neurologist, Dr. Rosas, get blood ctx and add iv vancomycin and get LP. -Hypoglycemia on insulin pump; pt and family very defensive regarding this. Patient went as far as stating, "are you an Senior Consulting Manager!": I don't recommend the insulin pump because they gave a history of recurrent episodes of hypoglycemia. They are not receptive to my recommendations which was met with hostility. History Interval history: Patient seen and examined. Follow up on seizures. This developed a fever yesterday. No cp, sob, n/v or severe headaches. Imaging, old records, testing, labs, nursing notes reviewed. Hospitalist Physical - Physical exam Narrative exam: GEN: WDWN, NAD, AWAKE, ALERT, ORIENTATED x 3 HEENT: NCAT, PERRL, EOMI, OP CLEAR NECK: SUPPLE, NO THYROMEGALY, NO JVD, NO LAD CVS: RRR, NORMAL S1S2 LUNGS/CHEST: CTA B, NORMAL CHEST EXPANSION B, GOOD AIR ENTRY B ABD: SOFT, NTND, GBS, NO REBOUND OR GUARDING EXT/SKIN: NO SIGNIFICANT EDEMA OR RASH MSK: FROM X 4 EXTREMITIES NEURO: CN 2-12 GROSSLY INTACT, NO FOCAL DEFICITS PSY: CALM, upset, he would not even speak to me. - Constitutional Vitals: Temp Pulse Resp BP Pulse Ox 100.1 F H 64 16 128/72 97 09/29/16 08:20 09/29/16 08:20 09/29/16 08:20 09/29/16 08:20 09/29/16 08:20 Results - Labs CBC & Chem 7: 09/28/16 06:57 09/28/16 06:57 Labs: Laboratory Last Values WBC 3.8 K/mm3 (4.5-11.0) L 09/28/16 06:57 RBC 4.64 M/mm3 (3.65-5.03) 09/28/16 06:57 Hgb 13.7 gm/dl (11.8-15.2) 09/28/16 06:57 Hct 40.8 % (35.5-45.6) 09/28/16 06:57 MCV 88 fl (84-94) 09/28/16 06:57 MCH 30 pg (28-32) 09/28/16 06:57 MCHC 34 % (32-34) 09/28/16 06:57 RDW 12.6 % (13.2-15.2) L 09/28/16 06:57 Plt Count 119 K/mm3 (140-440) L 09/28/16 06:57 Lymph % (Auto) 32.8 % (13.4-35.0) 09/28/16 06:57 [place] % (Auto) 15.0 % (0.0-7.3) H 09/28/16 06:57 Eos % (Auto) 0.3 % (0.0-4.3) 09/28/16 06:57 Baso % (Auto) 0.6 % (0.0-1.8) 09/28/16 06:57 Lymph # 1.3 K/mm3 (1.2-5.4) 09/28/16 06:57 [place] # 0.6 K/mm3 (0.0-0.8) 09/28/16 06:57 Eos # 0.0 K/mm3 (0.0-0.4) 09/28/16 06:57 Baso # 0.0 K/mm3 (0.0-0.1) 09/28/16 06:57 Add Manual Diff Complete 09/27/16 16:18 Total Counted 100 09/27/16 16:18 Seg Neutrophils % 51.3 % (40.0-70.0) 09/28/16 06:57 Seg Neuts % (Manual) 60.0 % (40.0-70.0) 09/27/16 16:18 Band Neutrophils % 1.0 % 09/27/16 16:18 Lymphocytes % (Manual) 22.0 % (13.4-35.0) 09/27/16 16:18 Reactive Lymphs % (Man) 0 % 09/27/16 16:18 Monocytes % (Manual) 16.0 % (0.0-7.3) H 09/27/16 16:18 Eosinophils % (Manual) 1.0 % (0.0-4.3) 09/27/16 16:18 Basophils % (Manual) 0 % (0.0-1.8) 09/27/16 16:18 Metamyelocytes % 0 % 09/27/16 16:18 Myelocytes % 0 % 09/27/16 16:18 Promyelocytes % 0 % 09/27/16 16:18 Blast Cells % 0 % 09/27/16 16:18 Nucleated RBC % Not Reportable 09/27/16 16:18 Seg Neutrophils # 2.0 K/mm3 (1.8-7.7) 09/28/16 06:57 Seg Neutrophils # Man 1.6 K/mm3 (1.8-7.7) L 09/27/16 16:18 Band Neutrophils # 0.0 K/mm3 09/27/16 16:18 Lymphocytes # (Manual) 0.6 K/mm3 (1.2-5.4) L 09/27/16 16:18 Abs React Lymphs (Man) 0.0 K/mm3 09/27/16 16:18 Monocytes # (Manual) 0.4 K/mm3 (0.0-0.8) 09/27/16 16:18 Eosinophils # (Manual) 0.0 K/mm3 (0.0-0.4) 09/27/16 16:18 Basophils # (Manual) 0.0 K/mm3 (0.0-0.1) 09/27/16 16:18 Metamyelocytes # 0.0 K/mm3 09/27/16 16:18 Myelocytes # 0.0 K/mm3 09/27/16 16:18 Promyelocytes # 0.0 K/mm3 09/27/16 16:18 Blast Cells # 0.0 K/mm3 09/27/16 16:18 WBC Morphology Not Reportable 09/27/16 16:18 Hypersegmented Neuts Not Reportable 09/27/16 16:18 Hyposegmented Neuts Not Reportable 09/27/16 16:18 Hypogranular Neuts Not Reportable 09/27/16 16:18 Smudge Cells Not Reportable 09/27/16 16:18 Toxic Granulation Not Reportable 09/27/16 16:18 Toxic Vacuolation Not Reportable 09/27/16 16:18 Dohle Bodies Not Reportable 09/27/16 16:18 Pelger-Huet Anomaly Not Reportable 09/27/16 16:18 Liat Rods Not Reportable 09/27/16 16:18 Platelet Estimate Consistent w auto 09/27/16 16:18 Clumped Platelets Not Reportable 09/27/16 16:18 Plt Clumps, EDTA Not Reportable 09/27/16 16:18 Large Platelets Not Reportable 09/27/16 16:18 Giant Platelets Not Reportable 09/27/16 16:18 Platelet Satelliting Not Reportable 09/27/16 16:18 Plt Morphology Comment Not Reportable 09/27/16 16:18 RBC Morphology Not Reportable 09/27/16 16:18 Dimorphic RBCs Not Reportable 09/27/16 16:18 Polychromasia Not Reportable 09/27/16 16:18 Hypochromasia Not Reportable 09/27/16 16:18 Poikilocytosis Not Reportable 09/27/16 16:18 Anisocytosis 1+ 09/27/16 16:18 Microcytosis Not Reportable 09/27/16 16:18 Macrocytosis Not Reportable 09/27/16 16:18 Spherocytes Not Reportable 09/27/16 16:18 Pappenheimer Bodies Not Reportable 09/27/16 16:18 Sickle Cells Not Reportable 09/27/16 16:18 Target Cells Not Reportable 09/27/16 16:18 Tear Drop Cells Not Reportable 09/27/16 16:18 Ovalocytes Not Reportable 09/27/16 16:18 Helmet Cells Not Reportable 09/27/16 16:18 Yance[place]co Bodies Not Reportable 09/27/16 16:18 [place] Rings Not Reportable 09/27/16 16:18 [place] Cells Not Reportable 09/27/16 16:18 Bite Cells Not Reportable 09/27/16 16:18 Crenated Cell Not Reportable 09/27/16 16:18 Elliptocytes Not Reportable 09/27/16 16:18 Acanthocytes (Spur) Not Reportable 09/27/16 16:18 Rouleaux Not Reportable 09/27/16 16:18 Hemoglobin C Crystals Not Reportable 09/27/16 16:18 Schistocytes Not Reportable 09/27/16 16:18 Malaria parasites Not Reportable 09/27/16 16:18 Xavier Bodies Not Reportable 09/27/16 16:18 Hem Pathologist Commnt No 09/27/16 16:18 Sodium 136 mmol/L (137-145) L 09/28/16 06:57 Potassium 3.8 mmol/L (3.6-5.0) 09/28/16 06:57 Chloride 100.9 mmol/L (98-107) 09/28/16 06:57 Carbon Dioxide 23 mmol/L (22-30) 09/28/16 06:57 Anion Gap 16 mmol/L 09/28/16 06:57 BUN 4 mg/dL (9-20) L 09/28/16 06:57 Creatinine 1.1 mg/dL (0.8-1.5) 09/28/16 06:57 Estimated GFR > 60 ml/min 09/28/16 06:57 BUN/Creatinine Ratio 3.63 % 09/28/16 06:57 Glucose 223 mg/dL (75-100) H 09/28/16 06:57 POC Glucose 96 (70-105) 09/29/16 12:03 Hemoglobin A1c 8.2 % (4-6) H 09/27/16 16:18 Lactic Acid 1.30 mmol/L (0.7-2.0) 09/27/16 17:35 Calcium 8.1 mg/dL (8.4-10.2) L 09/28/16 06:57 Magnesium 1.50 mg/dL (1.7-2.3) L 09/27/16 16:18 Total Bilirubin 1.50 mg/dL (0.1-1.2) H 09/28/16 06:57 AST 15 units/L (5-40) 09/28/16 06:57 ALT 16 units/L (7-56) 09/28/16 06:57 Alkaline Phosphatase 50 units/L (35-129) 09/28/16 06:57 Total Creatine Kinase 363 units/L (55-170) H 09/27/16 17:35 Total Protein 5.5 g/dL (6.3-8.2) L 09/28/16 06:57 Albumin 3.4 g/dL (3.9-5) L 09/28/16 06:57 Albumin/Globulin Ratio 1.6 % 09/28/16 06:57 TSH 0.105 mlU/mL (0.270-4.200) L 09/27/16 16:18 Urine Color Yellow (Yellow) 09/27/16 15:50 Urine Turbidity Clear (Clear) 09/27/16 15:50 Urine pH 6.0 (5.0-7.0) 09/27/16 15:50 Ur Specific [place] 1.018 (1.003-1.030) 09/27/16 15:50 Urine Protein <15 mg/dl mg/dL (Negative) 09/27/16 15:50 Urine Glucose (UA) >=500 mg/dL (Negative) 09/27/16 15:50 Urine Ketones Neg mg/dL (Negative) 09/27/16 15:50 Urine Blood Neg (Negative) 09/27/16 15:50 Urine Nitrite Neg (Negative) 09/27/16 15:50 Urine Bilirubin Neg (Negative) 09/27/16 15:50 Urine Urobilinogen 2.0 mg/dL (<2.0) 09/27/16 15:50 Ur Leukocyte Esterase Neg (Negative) 09/27/16 15:50 Urine WBC (Auto) 1.0 /HPF (0.0-6.0) 09/27/16 15:50 Urine RBC (Auto) 3.0 /HPF (0.0-6.0) 09/27/16 15:50 Urine Mucus Few /HPF 09/27/16 15:50 Salicylates < 0.3 mg/dL (2.8-20.0) L 09/27/16 16:18 Urine Opiates Screen Presumptive negative 09/27/16 15:50 Urine Methadone Screen Presumptive negative 09/27/16 15:50 Acetaminophen < 15.0 ug/mL (10.0-30.0) 09/27/16 16:18 Ur Barbiturates Screen Presumptive negative 09/27/16 15:50 Ur Phencyclidine Scrn Presumptive negative 09/27/16 15:50 Ur Amphetamines Screen Presumptive negative 09/27/16 15:50 U Benzodiazepines Scrn Presumptive negative 09/27/16 15:50 Urine Cocaine Screen Presumptive negative 09/27/16 15:50 U Marijuana (THC) Screen Presumptive positive 09/27/16 15:50 Drugs of Abuse Note Disclamer 09/27/16 15:50 Plasma/Serum Alcohol < 0.01 gm% (0-0.07) 09/27/16 16:18
[2016-09-29] MEDS: MUCINEX ER PO SCH ×2 (14:05→21:34)
[2016-09-29] MEDS ORDERED: VANCOMYCIN PHARMACY TO DOSE IV SCH (16:00)
[2016-09-29] MEDS: VANCOMYCIN/NS 1 GM/250 ML 1 GM/250 ML BAG IV SCH ×2 (16:43→23:05)
[2016-09-29 17:11] LABS: Bilirubin,Urine NEG (Negative); Blood,Urine NEG (Negative); Ketones,Urine NEG (Negative); Leukocyte Esterase,Urine NEG (Negative); Mucus,Urine FEW /HPF; Nitrite,Urine NEG (Negative); Protein,Urine <15 mg/dL mg/dL (Negative); RBC,Urine < 1.0 /HPF (0.0-6.0)
[2016-09-29 23:19] VITALS: BP 128/68
[2016-09-30] MEDS ORDERED: MOTRIN PO ONE (01:30)
[2016-09-30] MEDS: SYNTHROID PO SCH (06:17)
[2016-09-30] MEDS: VANCOMYCIN/NS 1 GM/250 ML 1 GM/250 ML BAG IV SCH (08:02)
[2016-09-30 08:43] LABS: INR 1.17 (0.87-1.13)
[2016-09-30 08:44] LABS: Partial Thromboplastin Time 31.8 Sec. (24.2-36.6)
[2016-09-30] MEDS ORDERED: XYLOCAINE 1% 20 mL ONE (09:20)
--- NOTE | 2016-09-30 10:53 | Progress Note ---
Assessment and Plan Assessment and plan: Patient is a 26-year-old man with history of type 1 diabetes mellitus on insulin pump, rhabdomyolysis with left foot drop and hypothyroidism who presents with new onset seizure and altered mental status. CT of the head read as negative, EEG negative per Dr. Rosas, the neurologist; however, on Keppra. -Acute encephalopathy, POA, resolved. -New Onset seizures: Continue Keppra, MRI machine is not working per verbal report from RN -Hypothyroidism with low TSH: Needs adjustment dose of Synthroid -SIRS, as evident by 100.4 Fahrenheit temperature and white blood cell count 3.8 : Patient given IV Rocephin since admission per Dr. Coleman, I ordered CXR, UA and blood cultures, spoke with Neurologist, Dr. Rosas, get blood ctx and added iv vancomycin and ordered LP. -Hypoglycemia on insulin pump; pt and family very defensive regarding this. Patient went as far as stating, "are you an [employer]o Mechanical Technician!": I don't recommend the insulin pump because they gave a history of recurrent episodes of hypoglycemia. They are not receptive to my recommendations which was met with hostility. I reiterated that hypoglycemia is ischemia is very dangerous which could lead to . She asked me a rhetoric question, "did you put the insulin pump in and did you know it has an alarm set to tell him when his numbers are low?" 09/30/16: Patient seen and examined prior to lumbar puncture. Patient has upper molar toothache that is chronic. Patient went down to radiology for fluoroscopic lumbar puncture. I got a call from the radiologist, Dr. Kessler, stating that patient would not cooperate with the lumbar puncture, patient called him a "Hayder" prior to walking out of the procedure. I then received a call from the third floor charge nurse, Joshua, stating that the mother (Dr. Malcolm PhD) would like to speak to me. The mother is very upset and using foul language in describing the Occurrence which happened down the radiology suite between her son and radiologist; however, she did not witness the occurrence. Mother states, "I know my son can be difficult and has a bad attitude, maybe, but the care here has been terrible starting from the emergency department." She gives a history of a physician (she doesn't know physician's name) down in the emergency department stating that her son had overdosed on amphetamine which was negative in a urine drug screen, she states, "he (physician) didn't even come back to apologize." She wants me to discharge her son and doesn't want to him to sign out AMA because he will be responsible for the entire hospital bill. She request a transfer to another hospital but doesn't have an accepting physician. I declined to discharge him at this because he is on 2 antibiotics: IV vancomycin and IV Rocephin. I recommended she speak with our risk management but she declined. She retorted, "I am leaving this [facility] and suing your ass!" Nursing staff notified me that patient eloped; therefore, patient did not complete workup or treatment. History Interval history: Patient seen and examined. Follow up on seizures. This developed a fever but none overnight. No cp, sob, n/v or severe headaches. Imaging, old records, testing, labs, nursing notes reviewed. He had a toothache which is chronic x 5 years, he had an upper molar partial root canal, he has a temporary filling ( looks whitish) that he changes every so often, he last seen Dentist 3 months ago and did not go back due to monetary issues. Hospitalist Physical - Physical exam Narrative exam: GEN: WDWN, NAD, AWAKE, ALERT, ORIENTATED x 3 HEENT: NCAT, PERRL, EOMI, OP CLEAR, has whitish looking material upper molar NECK: SUPPLE, NO THYROMEGALY, NO JVD, NO LAD CVS: RRR, NORMAL S1S2 LUNGS/CHEST: CTA B, NORMAL CHEST EXPANSION B, GOOD AIR ENTRY B ABD: SOFT, NTND, GBS, NO REBOUND OR GUARDING EXT/SKIN: NO SIGNIFICANT EDEMA OR RASH MSK: FROM X 4 EXTREMITIES NEURO: CN 2-12 GROSSLY INTACT, NO FOCAL DEFICITS PSY: CALM - Constitutional Vitals: Temp Pulse Resp BP Pulse Ox 99.3 F 66 20 128/68 98 09/29/16 23:00 09/29/16 23:00 09/30/16 09:19 09/29/16 23:00 09/29/16 16:42 General appearance: Present: no acute distress Results - Labs CBC & Chem 7: 09/28/16 06:57 09/28/16 06:57 Labs: Laboratory Last Values WBC 3.8 K/mm3 (4.5-11.0) L 09/28/16 06:57 RBC 4.64 M/mm3 (3.65-5.03) 09/28/16 06:57 Hgb 13.7 gm/dl (11.8-15.2) 09/28/16 06:57 Hct 40.8 % (35.5-45.6) 09/28/16 06:57 MCV 88 fl (84-94) 09/28/16 06:57 MCH 30 pg (28-32) 09/28/16 06:57 MCHC 34 % (32-34) 09/28/16 06:57 RDW 12.6 % (13.2-15.2) L 09/28/16 06:57 Plt Count 119 K/mm3 (140-440) L 09/28/16 06:57 Lymph % (Auto) 32.8 % (13.4-35.0) 09/28/16 06:57 [place] % (Auto) 15.0 % (0.0-7.3) H 09/28/16 06:57 Eos % (Auto) 0.3 % (0.0-4.3) 09/28/16 06:57 Baso % (Auto) 0.6 % (0.0-1.8) 09/28/16 06:57 Lymph # 1.3 K/mm3 (1.2-5.4) 09/28/16 06:57 [place] # 0.6 K/mm3 (0.0-0.8) 09/28/16 06:57 Eos # 0.0 K/mm3 (0.0-0.4) 09/28/16 06:57 Baso # 0.0 K/mm3 (0.0-0.1) 09/28/16 06:57 Add Manual Diff Complete 09/27/16 16:18 Total Counted 100 09/27/16 16:18 Seg Neutrophils % 51.3 % (40.0-70.0) 09/28/16 06:57 Seg Neuts % (Manual) 60.0 % (40.0-70.0) 09/27/16 16:18 Band Neutrophils % 1.0 % 09/27/16 16:18 Lymphocytes % (Manual) 22.0 % (13.4-35.0) 09/27/16 16:18 Reactive Lymphs % (Man) 0 % 09/27/16 16:18 Monocytes % (Manual) 16.0 % (0.0-7.3) H 09/27/16 16:18 Eosinophils % (Manual) 1.0 % (0.0-4.3) 09/27/16 16:18 Basophils % (Manual) 0 % (0.0-1.8) 09/27/16 16:18 Metamyelocytes % 0 % 09/27/16 16:18 Myelocytes % 0 % 09/27/16 16:18 Promyelocytes % 0 % 09/27/16 16:18 Blast Cells % 0 % 09/27/16 16:18 Nucleated RBC % Not Reportable 09/27/16 16:18 Seg Neutrophils # 2.0 K/mm3 (1.8-7.7) 09/28/16 06:57 Seg Neutrophils # Man 1.6 K/mm3 (1.8-7.7) L 09/27/16 16:18 Band Neutrophils # 0.0 K/mm3 09/27/16 16:18 Lymphocytes # (Manual) 0.6 K/mm3 (1.2-5.4) L 09/27/16 16:18 Abs React Lymphs (Man) 0.0 K/mm3 09/27/16 16:18 Monocytes # (Manual) 0.4 K/mm3 (0.0-0.8) 09/27/16 16:18 Eosinophils # (Manual) 0.0 K/mm3 (0.0-0.4) 09/27/16 16:18 Basophils # (Manual) 0.0 K/mm3 (0.0-0.1) 09/27/16 16:18 Metamyelocytes # 0.0 K/mm3 09/27/16 16:18 Myelocytes # 0.0 K/mm3 09/27/16 16:18 Promyelocytes # 0.0 K/mm3 09/27/16 16:18 Blast Cells # 0.0 K/mm3 09/27/16 16:18 WBC Morphology Not Reportable 09/27/16 16:18 Hypersegmented Neuts Not Reportable 09/27/16 16:18 Hyposegmented Neuts Not Reportable 09/27/16 16:18 Hypogranular Neuts Not Reportable 09/27/16 16:18 Smudge Cells Not Reportable 09/27/16 16:18 Toxic Granulation Not Reportable 09/27/16 16:18 Toxic Vacuolation Not Reportable 09/27/16 16:18 Dohle Bodies Not Reportable 09/27/16 16:18 Pelger-Huet Anomaly Not Reportable 09/27/16 16:18 Liat Rods Not Reportable 09/27/16 16:18 Platelet Estimate Consistent w auto 09/27/16 16:18 Clumped Platelets Not Reportable 09/27/16 16:18 Plt Clumps, EDTA Not Reportable 09/27/16 16:18 Large Platelets Not Reportable 09/27/16 16:18 Giant Platelets Not Reportable 09/27/16 16:18 Platelet Satelliting Not Reportable 09/27/16 16:18 Plt Morphology Comment Not Reportable 09/27/16 16:18 RBC Morphology Not Reportable 09/27/16 16:18 Dimorphic RBCs Not Reportable 09/27/16 16:18 Polychromasia Not Reportable 09/27/16 16:18 Hypochromasia Not Reportable 09/27/16 16:18 Poikilocytosis Not Reportable 09/27/16 16:18 Anisocytosis 1+ 09/27/16 16:18 Microcytosis Not Reportable 09/27/16 16:18 Macrocytosis Not Reportable 09/27/16 16:18 Spherocytes Not Reportable 09/27/16 16:18 Pappenheimer Bodies Not Reportable 09/27/16 16:18 Sickle Cells Not Reportable 09/27/16 16:18 Target Cells Not Reportable 09/27/16 16:18 Tear Drop Cells Not Reportable 09/27/16 16:18 Ovalocytes Not Reportable 09/27/16 16:18 Helmet Cells Not Reportable 09/27/16 16:18 [place] Bodies Not Reportable 09/27/16 16:18 Cook Rings Not Reportable 09/27/16 16:18 [place] Cells Not Reportable 09/27/16 16:18 Bite Cells Not Reportable 09/27/16 16:18 Crenated Cell Not Reportable 09/27/16 16:18 Elliptocytes Not Reportable 09/27/16 16:18 Acanthocytes (Spur) Not Reportable 09/27/16 16:18 Rouleaux Not Reportable 09/27/16 16:18 Hemoglobin C Crystals Not Reportable 09/27/16 16:18 Schistocytes Not Reportable 09/27/16 16:18 Malaria parasites Not Reportable 09/27/16 16:18 Xavier Bodies Not Reportable 09/27/16 16:18 Hem Pathologist Commnt No 09/27/16 16:18 PT 14.8 Sec. (12.2-14.9) 09/30/16 07:52 INR 1.17 (0.87-1.13) H 09/30/16 07:52 APTT 31.8 Sec. (24.2-36.6) 09/30/16 07:52 Sodium 136 mmol/L (137-145) L 09/28/16 06:57 Potassium 3.8 mmol/L (3.6-5.0) 09/28/16 06:57 Chloride 100.9 mmol/L (98-107) 09/28/16 06:57 Carbon Dioxide 23 mmol/L (22-30) 09/28/16 06:57 Anion Gap 16 mmol/L 09/28/16 06:57 BUN 4 mg/dL (9-20) L 09/28/16 06:57 Creatinine 1.1 mg/dL (0.8-1.5) 09/28/16 06:57 Estimated GFR > 60 ml/min 09/28/16 06:57 BUN/Creatinine Ratio 3.63 % 09/28/16 06:57 Glucose 223 mg/dL (75-100) H 09/28/16 06:57 POC Glucose 97 (70-105) 09/30/16 05:13 Hemoglobin A1c 8.2 % (4-6) H 09/27/16 16:18 Lactic Acid 1.30 mmol/L (0.7-2.0) 09/27/16 17:35 Calcium 8.1 mg/dL (8.4-10.2) L 09/28/16 06:57 Magnesium 1.50 mg/dL (1.7-2.3) L 09/27/16 16:18 Total Bilirubin 1.50 mg/dL (0.1-1.2) H 09/28/16 06:57 AST 15 units/L (5-40) 09/28/16 06:57 ALT 16 units/L (7-56) 09/28/16 06:57 Alkaline Phosphatase 50 units/L (35-129) 09/28/16 06:57 Total Creatine Kinase 363 units/L (55-170) H 09/27/16 17:35 Total Protein 5.5 g/dL (6.3-8.2) L 09/28/16 06:57 Albumin 3.4 g/dL (3.9-5) L 09/28/16 06:57 Albumin/Globulin Ratio 1.6 % 09/28/16 06:57 TSH 0.105 mlU/mL (0.270-4.200) L 09/27/16 16:18 Urine Color Yellow (Yellow) 09/29/16 Unknown Urine Turbidity Clear (Clear) 09/29/16 Unknown Urine pH 8.0 (5.0-7.0) H 09/29/16 Unknown Ur Specific [place] 1.017 (1.003-1.030) 09/29/16 Unknown Urine Protein <15 mg/dl mg/dL (Negative) 09/29/16 Unknown Urine Glucose (UA) Neg mg/dL (Negative) 09/29/16 Unknown Urine Ketones Neg mg/dL (Negative) 09/29/16 Unknown Urine Blood Neg (Negative) 09/29/16 Unknown Urine Nitrite Neg (Negative) 09/29/16 Unknown Urine Bilirubin Neg (Negative) 09/29/16 Unknown Urine Urobilinogen 2.0 mg/dL (<2.0) 09/29/16 Unknown Ur Leukocyte Esterase Neg (Negative) 09/29/16 Unknown Urine WBC (Auto) 1.0 /HPF (0.0-6.0) 09/29/16 Unknown Urine RBC (Auto) < 1.0 /HPF (0.0-6.0) 09/29/16 Unknown U Epithel Cells (Auto) < 1.0 /HPF (0-13.0) 09/29/16 Unknown Urine Mucus Few /HPF 09/29/16 Unknown Salicylates < 0.3 mg/dL (2.8-20.0) L 09/27/16 16:18 Urine Opiates Screen Presumptive negative 09/27/16 15:50 Urine Methadone Screen Presumptive negative 09/27/16 15:50 Acetaminophen < 15.0 ug/mL (10.0-30.0) 09/27/16 16:18 Ur Barbiturates Screen Presumptive negative 09/27/16 15:50 Ur Phencyclidine Scrn Presumptive negative 09/27/16 15:50 Ur Amphetamines Screen Presumptive negative 09/27/16 15:50 U Benzodiazepines Scrn Presumptive negative 09/27/16 15:50 Urine Cocaine Screen Presumptive negative 09/27/16 15:50 U Marijuana (THC) Screen Presumptive positive 09/27/16 15:50 Drugs of Abuse Note Disclamer 09/27/16 15:50 Plasma/Serum Alcohol < 0.01 gm% (0-0.07) 09/27/16 16:18
--- NOTE | 2016-09-30 11:20 | Discharge Summary ---
Providers - Providers Date of Admission: 09/27/16 21:02 Attending physician: ROCKY VILLAFUERTE 09/27/16 21:08 Consult to Physician [CONS] Routine Consulting Provider: SPARKLE ROSAS Reason For Exam: [id number] ONSET Place consult to:: dr. rosas Notified:: answering machine Phone number called:: [phone] Was contact made?: Yes Time called:: 07:39 Primary care physician: [employer] SUPERVISOR Hospitalization Condition: Fair Hospital course: Patient is a 26-year-old man with history of type 1 diabetes mellitus on insulin pump, rhabdomyolysis with left foot drop and hypothyroidism who presents with new onset seizure and altered mental status. CT of the head read as negative, EEG negative per Dr. Rosas, the neurologist; however, on Keppra. -Acute encephalopathy, POA, resolved. -New Onset seizures: Continue Keppra, MRI machine is not working per verbal report from RN -Hypothyroidism with low TSH: Needs adjustment dose of Synthroid -SIRS, as evident by 100.4 Fahrenheit temperature and white blood cell count 3.8 : Patient given IV Rocephin since admission per Dr. Coleman, I ordered CXR, UA and blood cultures, spoke with Neurologist, Dr. Rosas, get blood ctx and added iv vancomycin and ordered LP. Suspect Bacterial Meningitis with Sepsis. -Hypoglycemia on insulin pump; pt and family very defensive regarding this. Patient went as far as stating, "are you an Steel Rigger!": I don't recommend the insulin pump because they gave a history of recurrent episodes of hypoglycemia. They are not receptive to my recommendations which was met with hostility. I reiterated that hypoglycemia is ischemia is very dangerous which could lead to . She asked me a rhetoric question, "did you put the insulin pump in and did you know it has an alarm set to tell him when his numbers are low?" 09/30/16: Patient seen and examined prior to lumbar puncture. Patient has upper molar toothache that is chronic. Patient went down to radiology for fluoroscopic lumbar puncture. I got a call from the radiologist, Dr. Kessler, stating that patient would not cooperate with the lumbar puncture, patient called him a "Hayder" prior to walking out of the procedure. I then received a call from the third floor charge nurse, Joshua, stating that the mother (Dr. Malcolm PhD) would like to speak to me. The mother is very upset and using foul language in describing the Occurrence which happened down the radiology suite between her son and radiologist; however, she did not witness the occurrence. Mother states, "I know my son can be difficult and has a bad attitude, maybe, but the care here has been terrible starting from the emergency department." She gives a history of a physician (she doesn't know physician's name) down in the emergency department stating that her son had overdosed on amphetamine which was negative in a urine drug screen, she states, "he (physician) didn't even come back to apologize." She wants me to discharge her son and doesn't want to him to sign out AMA because he will be responsible for the entire hospital bill. She request a transfer to another hospital but doesn't have an accepting physician. I declined to discharge him at this because he is on 2 antibiotics: IV vancomycin and IV Rocephin. I recommended she speak with our risk management but she declined. She retorted, "I am leaving this [facility] and suing your ass!" Nursing staff notified me that patient eloped; therefore, patient did not complete workup or treatment. Disposition: DC-07 LEFT AGAINST MED ADVICE Core Measure Documentation - Palliative Care Palliative Care/ Comfort Measures: Not Applicable - Core Measures Any of the following diagnoses?: none - VTE Discharge Requirements Deep Vein Thrombosis/Pulmonary Embolism Present on Admission: No Has pt received <5 days of overlap therapy or INR<2.0: No Anticoagulant overlap therapy prescribed at discharge: No Contraindication No Overlap Therapy order at DC: Not Indicated Exam - Physical Exam Narrative exam: GEN: WDWN, NAD, AWAKE, ALERT, ORIENTATED x 3 HEENT: NCAT, PERRL, EOMI, OP CLEAR, has whitish looking material upper molar NECK: SUPPLE, NO THYROMEGALY, NO JVD, NO LAD CVS: RRR, NORMAL S1S2 LUNGS/CHEST: CTA B, NORMAL CHEST EXPANSION B, GOOD AIR ENTRY B ABD: SOFT, NTND, GBS, NO REBOUND OR GUARDING EXT/SKIN: NO SIGNIFICANT EDEMA OR RASH MSK: FROM X 4 EXTREMITIES NEURO: CN 2-12 GROSSLY INTACT, NO FOCAL DEFICITS PSY: CALM - Constitutional Vitals: Temp Pulse Resp BP Pulse Ox 99.3 F 66 20 128/68 98 09/29/16 23:00 09/29/16 23:00 09/30/16 09:19 09/29/16 23:00 09/29/16 16:42 Plan Follow up with: PRIMARY MD MARQUITA [Primary Care Provider] - 7 Days
[2016-09-30] MEDS ORDERED: LEVAQUIN PO SCH (22:00)
[2016-09-30] MEDS ORDERED: KEPPRA PO SCH (22:00)
== END 2016-09-30 10:38 | disposition left against medical advice (07) | DRG 871 ==
LOC: ED 14:29 → 3A 21:02
PROVIDERS: ADMIT Internal Medicine; ATTEND Internal Medicine
DX: A41.9 Sepsis, unspecified organism (principal); G93.49 Other encephalopathy; G00.9 Bacterial meningitis, unspecified; G40.909 Epilepsy, unspecified, not intractable, without status epilepticus; E03.9 Hypothyroidism, unspecified; E10.649 Type 1 diabetes mellitus with hypoglycemia without coma
CPT/HCPCS: 36415; 70450; 71010; 80053; 80307; 80320; 81001; 82140; 82550; 82962; 83036; 83735; 84443; 85007; 85025; 85610; 85730; 87040; 93005; 93010; 95819; 96374; 96375; G0480; J0696; J1170; J1650; J1953; J2060; J2310; J3370; J7030